=== PATIENT | female | born 1980 | race Caucasian/White ===

== ENCOUNTER 2017-09-20 10:19 | Inpatient (IN) | payer OTHER ==
[~2017-09-20 10:19] MED LIST: CLINDAMYCIN 900 MG/50 ML D5W IVPB IVPB
[2017-09-20 12:20] LABS: PROTIME 12.6 Sec (11.9-14.9)
[2017-09-20 12:21] LABS: INR 0.93
[2017-09-20] MEDS ORDERED: PROPOFOL 20 ML (13:16)
[2017-09-20] MEDS ORDERED: NEOSTIGMINE 3 MG/3 ML SYRINGE (13:16)
[2017-09-20] MEDS ORDERED: ROCURONIUM 50 MG INJ (13:16)
[2017-09-20] MEDS ORDERED: DEXAMETHASONE 4 MG/ML 1 ML INJ (13:17)
[2017-09-20] MEDS ORDERED: CEFAZOLIN 1 GM INJ (13:17)
[2017-09-20] MEDS ORDERED: MIDAZOLAM 1 MG/ML 2 ML INJ (13:17)
[2017-09-20] MEDS ORDERED: GLYCOPYRROLATE 0.4 MG INJ (13:17)
[2017-09-20] MEDS ORDERED: FENTAnyl 50 MCG/ML VIAL (13:17)
[2017-09-20] MEDS ORDERED: ONDANSETRON 4 MG INJ (13:17)
[2017-09-20] MEDS ORDERED: morphine SULFATE/PF (10 MG/10 ML) INJ (13:18)
[2017-09-20] MEDS ORDERED: BUPIVACAINE 0.75%/DEXT (SPINAL) 2 ML INJ (13:18)
[2017-09-20] MEDS ORDERED: SODIUM CL BACTERIOSTATIC 30 ML INJ (13:32)
[2017-09-20] MEDS ORDERED: EPINEPHrine 0.1 MG/ML SYG (14:24)
[2017-09-20] MEDS ORDERED: EPINEPHrine 1 MG INJ (14:24)
[2017-09-20] MEDS ORDERED: MIDAZOLAM 1 MG/ML 2 ML INJ IV (15:00)
[2017-09-20] MEDS ORDERED: DIPHENHYDRAMINE 50 MG INJ IV ×2 (15:00)
[2017-09-20] MEDS ORDERED: MEPERIDINE 25 MG INJ IV (15:00)
[2017-09-20] MEDS ORDERED: EPHEDrine SULFATE 50 MG/5 ML SYG IV (15:00)
[2017-09-20] MEDS ORDERED: IPRATROPIUM (NEB) 0.5 MG/2.5 ML AMP HHN (15:00)
[2017-09-20] MEDS ORDERED: ONDANSETRON 4 MG INJ IV (15:00)
[2017-09-20] MEDS ORDERED: ALBUTEROL 0.083% (NEB) 2.5 MG/3 ML AMP HHN (15:00)
[2017-09-20] MEDS ORDERED: FENTAnyl 50 MCG/ML VIAL IV ×3 (15:00)
[2017-09-20] MEDS ORDERED: OXYCODONE/ACETAMINOPHEN (5/325) TAB PO ×2 (15:00)
[2017-09-20] MEDS ORDERED: HYDROmorphONE (0.2 MG/ML) 10ML SYG IV ×2 (15:00)
[2017-09-20] MEDS ORDERED: NALOXONE (0.4 MG/ML) INJ IV (15:00)
[2017-09-20] MEDS ORDERED: LABETALOL HCL 20MG INJ IV (15:00)
[2017-09-20] MEDS ORDERED: HYDROmorphONE 0.5 MG/0.5 ML SYG IV ×2 (15:00)
[2017-09-20] MEDS ORDERED: TRIMETHOBENZAMIDE 100 MG/ML VIAL IM (15:00)
[2017-09-20] MEDS ORDERED: NALBUPHINE HCL (10 MG/1 ML) INJ IV (15:00)
[2017-09-20] MEDS ORDERED: hydrALAzine 20 MG INJ IV (15:00)
[2017-09-20] MEDS: VASOPRESSIN 20 UNITS INJ (15:11)
[2017-09-20] MEDS ORDERED: SUGAMMADEX SODIUM 200 MG/2 ML VIAL IV (16:43)
[2017-09-20] MEDS ORDERED: METOCLOPRAMIDE 10 MG INJ (16:56)
[2017-09-20] MEDS ORDERED: ACETAMINOPHEN 325 MG TAB PO (17:00)
[2017-09-20] MEDS: ONDANSETRON 4 MG INJ IV ×2 (17:54→21:36)
[2017-09-20 18:06] LABS: ADD MAN DIFF? NO
[2017-09-20 18:10] LABS: WHITE BLOOD COUNT 17.6 10^3/ul (4.8-10.8)
[2017-09-20 18:10] LABS: BASOPHILS % 0.2 % (0.0-2.0); EOSINOPHILS % 0.2 % (0.0-7.0); HEMATOCRIT 27.7 % (37.0-47.0); LYMPHOCYTES # 1.8 10^3/ul (0.8-2.9); LYMPHOCYTES % 10.1 % (15.0-51.0); MEAN CORPUSCULAR HEMOGLOBIN 26.1 pg (29.0-33.0); MEAN CORPUSCULAR HGB CONC 32.5 g/dl (32.0-37.0); MEAN CORPUSCULAR VOLUME 80.3 fl (82.0-101.0); MEAN PLATELET VOLUME 10.2 fl (7.4-10.4); MONOCYTE # 0.7 10^3/ul (0.3-0.9); MONOCYTES % 3.8 % (0.0-11.0); NEUTROPHIL # 14.9 10^3/ul (1.6-7.5); NEUTROPHILS % 85.1 % (39.0-77.0); PLATELET COUNT 294 10^3/UL (140-415); RED BLOOD COUNT 3.45 10^6/ul (4.20-5.40); RED CELL DISTRIBUTION WIDTH 14.4 % (11.5-14.5)
[2017-09-20 18:30] LABS: ANION GAP 15 (8-16); CARBON DIOXIDE 24 mmol/L (21-31); CHLORIDE 105 mmol/L (97-110); GLUCOSE 133 mg/dl (70-220); HOLD TRANSMISSIONS 1
[2017-09-20 18:31] LABS: BLOOD UREA NITROGEN 7 mg/dl (7-20); CREATININE 0.45 mg/dl (0.44-1.00); POTASSIUM 3.8 mmol/L (3.5-5.1); SODIUM 140 mmol/L (135-144)
[2017-09-20] MEDS: HYDROmorphONE (0.2 MG/ML) 10ML SYG IV ×3 (18:50→20:01)
[2017-09-20] MEDS: LACTATED RINGER'S 1,000 ML IV (20:25)
[2017-09-20] MEDS: morphine 2 MG INJ IV (21:36)
[2017-09-20] MEDS: HYDROCODONE/APAP (5/325) TAB PO (21:36)
[2017-09-21] MEDS: morphine 2 MG INJ IV ×3 (01:59→04:54)
[2017-09-21] MEDS: LACTATED RINGER'S 1,000 ML IV ×3 (04:29→13:27)
[2017-09-21] MEDS: ONDANSETRON 4 MG INJ IV ×2 (04:29→11:24)
[2017-09-21] MEDS: HYDROCODONE/APAP (5/325) TAB PO ×3 (04:30→23:37)
[2017-09-21 06:32] LABS: ADD MAN DIFF? NO
[2017-09-21 06:39] LABS: BASOPHILS % 0.1 % (0.0-2.0); HEMATOCRIT 28.5 % (37.0-47.0); HEMOGLOBIN 9.2 g/dl (12.0-16.0); LYMPHOCYTES # 1.2 10^3/ul (0.8-2.9); LYMPHOCYTES % 10.2 % (15.0-51.0); MEAN CORPUSCULAR HGB CONC 32.3 g/dl (32.0-37.0); MEAN CORPUSCULAR VOLUME 80.5 fl (82.0-101.0); MEAN PLATELET VOLUME 10.4 fl (7.4-10.4); MONOCYTE # 0.7 10^3/ul (0.3-0.9); MONOCYTES % 6.3 % (0.0-11.0); NEUTROPHIL # 9.4 10^3/ul (1.6-7.5); NEUTROPHILS % 82.8 % (39.0-77.0); PLATELET COUNT 309 10^3/UL (140-415); RED BLOOD COUNT 3.54 10^6/ul (4.20-5.40); RED CELL DISTRIBUTION WIDTH 13.9 % (11.5-14.5)
[2017-09-21 06:39] LABS: WHITE BLOOD COUNT 11.3 10^3/ul (4.8-10.8)
[2017-09-21 06:58] LABS: ANION GAP 13 (8-16); BLOOD UREA NITROGEN 5 mg/dl (7-20); CALCIUM 8.7 mg/dl (8.4-10.2); CARBON DIOXIDE 27 mmol/L (21-31); CHLORIDE 101 mmol/L (97-110); CREATININE 0.48 mg/dl (0.44-1.00); GLUCOSE 134 mg/dl (70-220); POTASSIUM 4.5 mmol/L (3.5-5.1); SODIUM 136 mmol/L (135-144)
[2017-09-22] MEDS: LACTATED RINGER'S 1,000 ML IV (01:03)
[2017-09-22] MEDS: morphine 2 MG INJ IV (01:06)
[2017-09-22] MEDS: HYDROCODONE/APAP (5/325) TAB PO ×3 (03:36→12:46)
[2017-09-22 06:24] LABS: ADD MAN DIFF? NO
[2017-09-22 06:30] LABS: BASOPHILS % 0.3 % (0.0-2.0); EOSINOPHILS # 0.1 10^3/ul (0.0-0.5); EOSINOPHILS % 0.8 % (0.0-7.0); HEMATOCRIT 30.3 % (37.0-47.0); HEMOGLOBIN 9.7 g/dl (12.0-16.0); LYMPHOCYTES % 29.9 % (15.0-51.0); MEAN CORPUSCULAR HEMOGLOBIN 25.9 pg (29.0-33.0); MEAN CORPUSCULAR VOLUME 80.8 fl (82.0-101.0); MEAN PLATELET VOLUME 10.5 fl (7.4-10.4); MONOCYTE # 0.9 10^3/ul (0.3-0.9); MONOCYTES % 8.8 % (0.0-11.0); NEUTROPHIL # 5.9 10^3/ul (1.6-7.5); NEUTROPHILS % 59.6 % (39.0-77.0); PLATELET COUNT 328 10^3/UL (140-415); RED BLOOD COUNT 3.75 10^6/ul (4.20-5.40); RED CELL DISTRIBUTION WIDTH 14.6 % (11.5-14.5)
[2017-09-22 06:30] LABS: WHITE BLOOD COUNT 9.9 10^3/ul (4.8-10.8)
[2017-09-22 06:59] LABS: ANION GAP 14 (8-16); BLOOD UREA NITROGEN 8 mg/dl (7-20); CALCIUM 8.3 mg/dl (8.4-10.2); CARBON DIOXIDE 27 mmol/L (21-31); CHLORIDE 106 mmol/L (97-110); CREATININE 0.56 mg/dl (0.44-1.00); GLUCOSE 99 mg/dl (70-220); POTASSIUM 3.6 mmol/L (3.5-5.1); SODIUM 143 mmol/L (135-144)
== END 2017-09-22 14:30 | disposition home or self-care (01) | DRG 743 ==
LOC: REC 10:19 → MS2 20:25
PROC: 0UT9FZZ Resection of Uterus, Via Natural or Artificial Opening With Percutaneous Endoscopic Assistance (ICD-10-PCS; principal; 2017-09-20 13:00)
PROC: 0UT7FZZ Resection of Bilateral Fallopian Tubes, Via Natural or Artificial Opening With Percutaneous Endoscopic Assistance (ICD-10-PCS; 2017-09-20 13:00)
PROC: 0UB04ZZ Excision of Right Ovary, Percutaneous Endoscopic Approach (ICD-10-PCS; 2017-09-20 13:00)
DX: N85.01 Benign endometrial hyperplasia (principal); D64.9 Anemia, unspecified; F32.9 Major depressive disorder, single episode, unspecified; F41.9 Anxiety disorder, unspecified; E78.5 Hyperlipidemia, unspecified; J45.909 Unspecified asthma, uncomplicated; R73.03 Prediabetes
CPT/HCPCS: 80048; 85025; 85610; 85730; 86850; 86900; 86901; 88307; 88331